=== PATIENT | male | born 1970 | race Caucasian/White ===

== ENCOUNTER → 2017-07-19 | Outpatient (CLI) | payer OTHER ==
--- NOTE | 2017-07-19 11:12 | RAD ---
Examination: Chest x-ray. Clinical History: Shortness of breath, fever, sarcoidosis. Technique: PA and lateral views of the chest were obtained. Comparison: None available. Findings: The cardiac and mediastinal contours are within normal limits. The thoracic aorta is tortuous. No pneumothorax or pleural effusion is noted. There is a small 8 mm nodular opacity seen overlying the right upper lung zone, superimposed on the p osterior right 4th rib. Comparison with a prior chest x-ray, preferably older than 2 years, is recomm ended. Mild degenerative changes are noted in the spine. No acute osseous abnormality is noted. Impression: 1. There is a small 8 mm nodular opacity seen overlying the right upper lung zone, superimposed on th e posterior right 4th rib. Comparison with a prior chest x-ray, preferably older than 2 years, is rec ommended. If no prior chest x-ray is available for comparison, a CT of the chest is recommended for f urther evaluation. Reported By:
== END ==
LOC: RAD 10:15
DX: R06.02 Shortness of breath (principal); R50.9 Fever, unspecified; R05 Cough; R91.8 Other nonspecific abnormal finding of lung field
CPT/HCPCS: 71046